=== PATIENT | female | born 1940 | race Caucasian/White ===

== ENCOUNTER 2022-11-22 11:09 | Outpatient (REF) | payer MEDICARE, SELFPAY ==
--- NOTE | ~2022-11-22 | XR_ITS ---
EXAMINATION: XR LUMBOSACRAL SPINE CLINICAL INFORMATION: Scoliosis COMPARISON: None available. TECHNIQUE: Two views of the lumbosacral spine. FINDINGS: There is a severe curvature of the lumbar sacral spine to the right. No fracture or dislocation. Multilevel degenerative disc. Lower lumbar spine facet arthritis. There may be sacralization of the right L5 transverse process. Right hip replacement. Arthritis at the left hip joint. Atherosclerotic disease. XR/XR lumbar spine 2-3V IMPRESSION: Severe scoliosis and degenerative changes
== END 2022-11-22 11:10 | disposition home or self-care (01) ==
LOC: HO.HOSX 11:09
PROVIDERS: PCP Family Medicine; Visit Provider Neurological Surgery
DX: M51.36 Other intervertebral disc degeneration, lumbar region (principal); M41.50 Other secondary scoliosis, site unspecified
CPT/HCPCS: 72100; 99202

== ENCOUNTER → 2022-12-13 15:03 | Outpatient (BNVA) | payer MEDICARE, SELFPAY | PROVIDERS: PCP Family Medicine; Visit Provider Neurological Surgery ==

== ENCOUNTER 2023-01-15 13:14 | Inpatient (IN) | payer MEDICARE, SELFPAY ==
[2023-01-08 09:47] VITALS: BMI 25.8
--- NOTE | 2023-01-08 14:44 | P.CONAN_ITS ---
Documented by User: Laverne Gallo NP 01/11/23 11:04 HPI - Anesthesia Eval Consult details Narrative: 82yo F for L2-3,L3-4 Oblique Lumbar Interbody Fusion Cardiac optimized PMFSH Active Problems Active Problems: All Active Problems (Updated 01/08/23 @ 09:46 by Brittany Henderson, RN) Scoliosis due to degenerative disease of spine in adult patient (Acute) Past Medical History Medical History (Updated 01/08/23 @ 09:46 by Brittany Henderson RN) Anxiety Atrophy of vagina Cystocele with small rectocele and uterine descent Dyspnea Hearing loss History of basal cell carcinoma History of endometrial biopsy History of Mohs micrographic surgery for skin cancer HTN (hypertension) Hyperlipidemia IBS (irritable bowel syndrome) MVP (mitral valve prolapse) Osteoarthritis PAC (premature atrial contraction) Palpitations Pessary maintenance RBBB Scoliosis of lumbosacral region due to degenerative disease of spine in adult Seasonal allergic rhinitis Spinal stenosis Surgical History Surgical History (Updated 01/15/23 @ 06:17 by Annmarie Swartz) H/O eye surgery History of carpal tunnel release History of total right hip replacement Hx of bilateral cataract extraction Hx of breast biopsy Hx of colonoscopy Status post Mohs surgery Social History Social History Are you a primary rn patient care to a significant other at home: No Do you presently have visiting nurse or other home services: No Patient Tobacco Use Status: Never used Tobacco Use of substances other than those prescribed or required for medical reasons: No Have you been hit, kicked, punched, or otherwise hurt by someone within the past year? If so, by whom?: No Are you DNR?: Yes Advance Directives Information Provided: Yes [place] [facility] [place] Advance Directives on File: No Recently lost weight without trying: No Eating poorly because of decreased appetite: No Nutrition Risks: Surgical patient >75years Poor oral hygiene: No Meds Allergies Allergy/AdvReac Type Severity Reaction Status Date / Time cefuroxime [From Ceftin] Allergy Intermediate Rash Verified 01/15/23 06:18 Penicillins Allergy Intermediate Rash Verified 01/15/23 06:18 Sulfa (Sulfonamide Allergy Intermediate Cough Verified 01/15/23 06:18 Antibiotics) baclofen AdvReac Severe suicidal Verified 01/15/23 06:18 thoughts gabapentin AdvReac Severe Hallucinati Verified 01/15/23 06:18 ons lactose AdvReac Intermediate Gastrointestinal Verified 01/15/23 06:18 Upset Home Medications Medication Instructions Recorded Confirmed Last Taken Type atenolol 25 mg tablet 25 mg PO QAM 11/22/22 01/15/23 01/15/23 04:30 History estradiol 0.01% (0.1 mg/gram) 0.5 g vaginal 2XW 11/22/22 01/15/23 01/11/23 History vaginal cream hydrocodone 5 mg-acetaminophen 300 1 tab PO Q6H 11/22/22 01/15/23 01/15/23 02:30 History mg tablet paroxetine HCl 10 mg tablet 10 mg PO BEDTIME 11/22/22 01/15/23 01/14/23 History sulindac 200 mg tablet 200 mg PO BID 11/22/22 01/15/23 01/11/23 History acetaminophen 500 mg tablet 1,000 mg PO BID 01/08/23 01/15/23 01/14/23 History calcium carbonate 600 mg calcium 600 mg PO BID 01/08/23 01/15/23 01/14/23 History (1,500 mg) tablet (Calcium) cholecalciferol (vitamin D3) 25 25 mcg PO DAILY 01/08/23 01/15/23 01/14/23 History mcg (1,000 unit) capsule (Vitamin D3) flaxseed oil 1,000 mg capsule 1,000 mg PO BID 01/08/23 01/15/23 01/11/23 History glucosamine sulfate 500 mg tablet 500 mg PO TID 01/08/23 01/15/23 01/11/23 History (Glucosamine) magnesium L-threonate 48 mg 48 mg PO DAILY 01/08/23 01/15/23 01/11/23 History magnesium (667 mg) capsule multivitamin 1 tab PO QAM 01/08/23 01/15/23 01/14/23 History pregabalin 100 mg capsule 100 mg PO BID 01/08/23 01/15/23 01/15/23 04:30 History pregabalin 25 mg capsule 25 mg PO BID 01/08/23 01/15/23 01/15/23 04:30 History Exam Exam Date and Time: January 08, 2023 1444 Height,Weight and Vital Signs: Height 5 ft 5 in Weight 70.307 kg Pertinent Lab Results Pertinent Lab Results: CBC and CMP 10/2022 from outside facility = WNL Narrative Narrative: EKG 12/2022 NSR @ 81 Incomplete RBBB (old) ECHO 2017 LV function nml. EF 65-70% Nml LV wall motion Mild diastolic dysfunction Trace aortic regurg Aortic sclerosis Assessment and Plan Assessment Anesthesia Assessment: Chart Reviewed Documented by User: Saroj Brewer MD 01/15/23 11:03 [facility] Past Medical History Medical History (Updated 01/08/23 @ 09:46 by Brittany Henderson RN) Anxiety Atrophy of vagina Cystocele with small rectocele and uterine descent Dyspnea Hearing loss History of basal cell carcinoma History of endometrial biopsy History of Mohs micrographic surgery for skin cancer HTN (hypertension) Hyperlipidemia IBS (irritable bowel syndrome) MVP (mitral valve prolapse) Osteoarthritis PAC (premature atrial contraction) Palpitations Pessary maintenance RBBB Scoliosis of lumbosacral region due to degenerative disease of spine in adult Seasonal allergic rhinitis Spinal stenosis Functional capacity: uses cane/walker Family History Family history of problems with anesthesia: No Surgical History Surgical History (Updated 01/15/23 @ 06:17 by Annmarie Swartz) H/O eye surgery History of carpal tunnel release History of total right hip replacement Hx of bilateral cataract extraction Hx of breast biopsy Hx of colonoscopy Status post Mohs surgery History of Problems with Anesthesia: No Social History Social History Are you a primary rn patient care to a significant other at home: No Do you presently have visiting nurse or other home services: No Patient Tobacco Use Status: Never used Tobacco Use of substances other than those prescribed or required for medical reasons: No Have you been hit, kicked, punched, or otherwise hurt by someone within the past year? If so, by whom?: No Are you DNR?: Yes Advance Directives Information Provided: Yes [place] [facility] [place] Advance Directives on File: No Recently lost weight without trying: No Eating poorly because of decreased appetite: No Nutrition Risks: Surgical patient >75years Poor oral hygiene: No Meds Allergies Allergy/AdvReac Type Severity Reaction Status Date / Time cefuroxime [From Ceftin] Allergy Intermediate Rash Verified 01/15/23 06:18 Penicillins Allergy Intermediate Rash Verified 01/15/23 06:18 Sulfa (Sulfonamide Allergy Intermediate Cough Verified 01/15/23 06:18 Antibiotics) baclofen AdvReac Severe suicidal Verified 01/15/23 06:18 thoughts gabapentin AdvReac Severe Hallucinati Verified 01/15/23 06:18 ons lactose AdvReac Intermediate Gastrointestinal Verified 01/15/23 06:18 Upset Home Medications Medication Instructions Recorded Confirmed Last Taken Type atenolol 25 mg tablet 25 mg PO QAM 11/22/22 01/15/23 01/15/23 04:30 History estradiol 0.01% (0.1 mg/gram) 0.5 g vaginal 2XW 11/22/22 01/15/23 01/11/23 History vaginal cream hydrocodone 5 mg-acetaminophen 300 1 tab PO Q6H 11/22/22 01/15/23 01/15/23 02:30 History mg tablet paroxetine HCl 10 mg tablet 10 mg PO BEDTIME 11/22/22 01/15/23 01/14/23 History sulindac 200 mg tablet 200 mg PO BID 11/22/22 01/15/23 01/11/23 History acetaminophen 500 mg tablet 1,000 mg PO BID 01/08/23 01/15/23 01/14/23 History calcium carbonate 600 mg calcium 600 mg PO BID 01/08/23 01/15/23 01/14/23 Histor y (1,500 mg) tablet (Calcium) cholecalciferol (vitamin D3) 25 25 mcg PO DAILY 01/08/23 01/15/23 01/14/23 History mcg (1,000 unit) capsule (Vitamin D3) flaxseed oil 1,000 mg capsule 1,000 mg PO BID 01/08/23 01/15/23 01/11/23 History glucosamine sulfate 500 mg tablet 500 mg PO TID 01/08/23 01/15/23 01/11/23 History (Glucosamine) magnesium L-threonate 48 mg 48 mg PO DAILY 01/08/23 01/15/23 01/11/23 History magnesium (667 mg) capsule multivitamin 1 tab PO QAM 01/08/23 01/15/23 01/14/23 History pregabalin 100 mg capsule 100 mg PO BID 01/08/23 01/15/23 01/15/23 04:30 History pregabalin 25 mg capsule 25 mg PO BID 01/08/23 01/15/23 01/15/23 04:30 History Exam Airway Mallampati Class: III TM Dist: >3cm Loose/Missing/Broken Teeth: Yes Assessment and Plan Assessment Anesthesia Assessment: Anesthesia Plan Discussed Final Anesthetic Review Family History of Problems with Anesthesia: No History of Problems with Anesthesia: No NPO: Yes ASA Class: III Final Preanesthetic Review: Meds/Allgs Chart Reviewed, Consent Obtained/Reviewed and Anes Risks/Benef Reviewed Patient Risk: Intermediate Procedure Risk: Intermediate Anesthetic Plan Anesthetic Plan: GA Disposition: Standard PACU
--- NOTE | 2023-01-12 17:36 | PHA.MEDREC ---
Pharmacy Consult ? Medication Reconciliation Pharmacy has reviewed the medication reconciliation.
[2023-01-15] VITALS (12 sets, daily range): BP systolic 105–137; BP diastolic 55–82; PULSE 65–95; RESP 14–20; TEMP 36.2–36.8; O2SAT 91–100; BMI 25.8
--- NOTE | ~2023-01-15 | FL_ITS ---
EXAMINATION: XR FLUOROSCOPY WITH IMAGES CLINICAL INFORMATION: L2-L3 and L3-L4 oblique lumbar interbody fusion. COMPARISON: Previous x-ray November 2022. TECHNIQUE: Fluoroscopy Supervised By: Dr. Jimmy Chapa. Fluoroscopy Time: 3 minutes. Cumulative Dose: 178 mGy. DAP: 1.71 Gy-cm2. Images: 7. FINDINGS: Initial images demonstrate interbody fusion hardware at L2-L3 and L3-L4. Later images demonstrate posterior fusion hardware with rods and transpedicular screws on the left at L3 and L4 and on the right at L2, L3 and L4. FL/FL guidance in OR IMPRESSION: Fluoroscopy guidance for lumbar spine fusion.
[2023-01-15] MEDS: Lactated Ringers 1,000 ML 100 ML IVCONT (06:49)
[2023-01-15] MEDS: methocarbamoL 750 MG TABLET PO (06:56)
--- NOTE | 2023-01-15 07:00 | MHC.SHP ---
Pre-Procedural Eval Section A Date of Service: 01/15/23 The patient is an INPATIENT: No The History & Physical has been completed within 30 days and I have reviewed it.: No Section B Chief Complaint: lumbar fusion surgery Details of Present Illness: see above Relevant Family History (Specify if Yes): No Relevant Social History: None Present Medications: see Short Stay Collaborative assessment Medical History: No relevant PMH History of Previous Operations: No relevant previous surgery Allergies: Allergies Allergy/AdvReac Type Severity Reaction Status Date / Time cefuroxime [From Ceftin] Allergy Intermediate Rash Verified 01/15/23 06:18 Penicillins Allergy Intermediate Rash Verified 01/15/23 06:18 Sulfa (Sulfonamide Allergy Intermediate Cough Verified 01/15/23 06:18 Antibiotics) baclofen AdvReac Severe suicidal Verified 01/15/23 06:18 thoughts gabapentin AdvReac Severe Hallucinati Verified 01/15/23 06:18 ons lactose AdvReac Intermediate Gastrointestinal Verified 01/15/23 06:18 Upset Review of Systems Sugical H&P ROS: Negative: Constitution, Cardiovascular, Respiratory, Neurological, Psychiatric, Hem-Onc, Allergic/Immunologic, Gastrointestinal, Genitourinary, Musculoskeletal, Integumentary, Endocrine and Eyes/Ears/Nose/Throat Exam Surgical H&P Exam: Not Evaluated: HEENT, Not Evaluated: Heart, Not Evaluated: Lungs, Not Evaluated: Extremities, Not Evaluated: Abdomen, Not Evaluated: Skin and Not Evaluated: Neurological Plan Diagnosis/Plan: Unchanged I have reviewed the history and physical and performed a pertinent physical examination on my patient. No changes have occurred unless specified. L2-3, L3-4 Oblique lumbar interbody fusion Time Spent With Patient Time: Total time managing care of this patient today __10__ minutes.
[2023-01-15] MEDS: vancomycin HCL 1,000 MG in 0.9 % Sodium Chloride 250 ML 270 MG IV ×2 (07:07→20:44)
--- NOTE | 2023-01-15 07:17 | PC.NURSE ---
Preop Vancomycin dose of 1000mg IV verified by Noemi in pharmacy.
--- NOTE | 2023-01-15 12:10 | W.PM.OPN ---
Operative Note Operative Note Date of Service: 01/15/23 Narrative: Preop Diagnosis: 1.) Lumbar degenerative scoliosis Procedure: L2-3, L3-4 discectomy, arthrodesis and implantation cage through an anterolateral, retroperitoneal approach; posterior instrumented fusion L2-L4; allograft Consent Informed Consent was obtained for this operation. I have explained the nature, purpose and benefits of the operation. I have discussed the risks and benefit of the operation including possible complications or adverse events with patient/family. Alternative(s) were discussed with the patient with their relative benefits and risks as well as the consequences of not accepting the operation were included in obtaining consent. Surgeon: STEVEN FERRER MD, PHD Procedure Assisted By: Henrique Oliva Description of Procedure this 82-year-old female suffered from back pain and leg pain. Imaging reveals a lumbar degenerative scoliosis. The patient was offered an oblique lumbar interbody fusion L2-3 and L3-4. The procedure complications were explained. The patient was consented. The patient was brought to the operating room and endotracheally intubated. The patient was turned in a lateral position with the left side up. Prep and drape was done followed by timeout. A small incision was made in the left lower abdominal quadrant. The muscle fascia was opened after which the 3 muscle layer was split to enter the retroperitoneal space. Dilators were docked in the anterior one third of the L3-4 disc space followed by a retractor. The retractor was opened. The L3-4 disc space was exposed. An annulotomy was done after which an elevator Torres was used to release the disc material from its endplates and to perforate the contralateral side. A partial discectomy was done. An 8 mm height trial implant was inserted. The discectomy was completed. The endplates were prepared. An 8 x 45 mm with 0 degree lordosis 4 web cage filled with allograft was inserted into the disc space under fluoroscopic guidance. Then the L2-3 disc space was addressed. Sequential dilators were placed. Retractor was inserted over it and docked in the anterior 1/3 of the L2-3 disc space. An annulotomy was done. The elevator Torres was used to release the disc material at to perforate the contralateral annulus. and initial diskectomy was done. An 8 mm trial was inserted. The diskectomy was completed followed by preparation of the endplates. Again an 8 mm x 45 mm cagewWith a 0 degree lordosis cwas inserted into the disc space.The retractor was removed. Hemostasis was done. The incision was closed in 2 layers. Steri-Strips used to approximate incision. An OpSite with Tegaderm was used to cover the incision. final x-ray showed a good correction of the scoliotic curvature.This marked first part of the procedure. The patient was turned prone on the Doug spine table. 2C arms were installed for fluoroscopy. Prep and drape was done followed by a second timeout.A paramedian incisions were made lateral from the right L2 pedicle. The muscle fascia was opened after which the muscle layer was split bluntly to expose the posterolateral gutter. The following steps were taken. A pediguard tap was used to create a transpedicular trajectory into the vertebral body. A K wire was placed. A specially designed instrument was advanced over the K wire to decorticate the posterolateral gutter in preparation for the posterolateral fusion. A pedicle screw was advanced over the K wire and the K wire was removed. The steps were done for the bilateral L2, L3 and L4 pedicles. Poor bone quality was and countered. a 5.5 x 40 mm screw was inserted in the bilateral L2 pedicles, a 6.5 x 40 mm screw was inserted in the bilateral L3 and L4 pedicles. the L2 to the L4 pedicle the screws were connected with a 70 mm hannah on the right side. A similar procedure was tried on the left side but unfortunately due to poor bone quality, and the left L2 pedicle screw came out. No effort was made to insert an and a screw based on the bone quality As we also saw that the right L3 pedicle pulled out in during insertion and locking down of the rods. The remaining L3 and L4 pedicles from the left side were connected with a 50 mm hannah and locked down with locking caps.The extension towers were removed. The posterolateral gutter was filled with allograft to complete the posterolateral L2-L4 fusion Hemostasis was done and the incision was closed in 2 layers. Steri-Strips were used to approximate the incision. An OpSite were taken and was used to cover the incision. All sponge and needle counts were correct. Patient was extubated and transferred in stable is to recovery room. Anesthesia: General Estimated Blood Loss (ml): 100 Duration of Surgery: 4 hours Postoperative Plan: Admit to [facility] for observation. Complications: None
[2023-01-15] MEDS: Ketorolac Tromethamine 15 MG/ML VIAL IVPUSH ×3 (13:02→23:31)
[2023-01-15] MEDS: fentaNYL citrate/PF 100 MCG/2 ML VIAL 25 MCG IVPUSH ×2 (13:02→13:10)
[2023-01-15] MEDS: oxyCODONE HCl Immed Release 5 MG TABLET PO (13:03)
[2023-01-15] MEDS: 0.9 % Sodium Chloride 1,000 ML 75 ML IVCONT (14:49)
--- NOTE | 2023-01-15 16:35 | HO.NEURO.PN ---
Neurosurgery Operative Note Date of Service: 01/15/23 Narrative: Postop Check Patient reports back pain, some tingling in her left leg which is pre-existing for many years. She did have to be straight cath once for 500 cc. She has been taking liquids but has not started eating yet. Physical exam: The patient is awake alert oriented, cooperative with my exam, she has full strength of bilateral lower extremities, back dressing has been reinforced but there was some oozing on the right side. No signs of hematoma Impression: Postop check, status postop day 0. L2-4 minimally invasive OLIF, clinically doing well, has back pain otherwise doing okay. She did have to be straight cath once. She has been up to the bathroom. An order was placed for her to have an LSO brace when she is out of bed, I suspect that will write tomorrow. She did report some scratching in her left eye, I evaluated at there is no redness, I will order some lubricating drops. Likely patient will go home tomorrow. Patient seen at bedside with Dr. Chapa.
[2023-01-15] MEDS: Acetaminophen 1,000 MG/100 ML PIGGYBACK 400 MG IV ×2 (17:49→23:31)
[2023-01-15] MEDS: Pregabalin 100 MG CAPSULE PO (20:32)
[2023-01-15] MEDS: Docusate Sodium 100 MG CAPSULE PO (20:32)
[2023-01-15] MEDS: Pregabalin 25 MG CAPSULE PO (20:32)
[2023-01-15] MEDS: PARoxetine HCL 10 MG TABLET PO (20:32)
[2023-01-15] MEDS: HYDROmorphone HCl 1 MG/ML SYRINGE IVPUSH (22:27)
[2023-01-16] MEDS: 0.9 % Sodium Chloride 1,000 ML 75 ML IVCONT (03:24)
[2023-01-16 03:25] VITALS: BP 100/58; PULSE 89; RESP 18; TEMP 36.2; O2SAT 94
[2023-01-16] MEDS: Ketorolac Tromethamine 15 MG/ML VIAL IVPUSH ×3 (05:36→18:38)
[2023-01-16] MEDS: Acetaminophen 1,000 MG/100 ML PIGGYBACK 400 MG IV ×3 (05:37→17:38)
[2023-01-16 07:47] VITALS: BP 99/54; PULSE 83; RESP 18; TEMP 37.2; O2SAT 92
[2023-01-16] MEDS: Magnesium Oxide 400 MG TABLET PO (09:21)
[2023-01-16] MEDS: Multivitamin TABLET 1 TAB PO (09:21)
[2023-01-16] MEDS: Docusate Sodium 100 MG CAPSULE PO ×2 (09:21→20:11)
[2023-01-16] MEDS: Pregabalin 100 MG CAPSULE PO ×2 (09:22→20:11)
[2023-01-16] MEDS: Cholecalciferol (Vitamin D3) 25 MCG TABLET PO (09:22)
[2023-01-16] MEDS: Pregabalin 25 MG CAPSULE PO ×2 (09:22→20:10)
--- NOTE | 2023-01-16 12:44 | MHC.CM.PN ---
PATIENT LIVES IN AN [place] APT CONNECTED TO HER DAUGHTER/HCP HOME HCP ON FILE AND VERIFIED. SHE IS HESITANT ABOUT RETURNING HOME TODAY AND IS AWARE OF HER MEDICARE RIGHT TO APPEAL SHE HAS A CANE AND WALKER IN THE HOME NORMALLY INDEPENDENT AND ACTIVE. ALTHOUGH [facility] RECOMMENDS OUTPATIENT REHAB SERVICES, SHE IS HOPING THAT [facility] (IN [place] NEAR WHERE SHE LIVES) CAN OFFER IN-HOME SERVICES REFERRAL PLACED TO INQUIRE. IMM 01/16 IN CHART
--- NOTE | 2023-01-16 12:53 | HO.NEURO.PN ---
Neurosurgery Operative Note Date of Service: 01/16/23 Narrative: Postop day 1. L2-3, L3-4 oblique lumbar interbody fusion Patient clinically complaining of some mild left iliopsoas weakness and her baseline numbness of her left lateral thigh. Her appetite is poor but she has been able to eat a little bit. She is drinking okay. She did have to be straight cathed 3 times overnight but was able to void earlier today for 200 cc. She is working with PT, her brace is not yet arrived. Afebrile, vital signs stable Physical exam: Patient is awake alert oriented, she has full strength of bilateral lower extremities with the exception of some mild left iliopsoas weakness which is likely from the trans psoas approach. Abdomen soft nondistended nontender, left lower quadrant incision clean and dry. No rebound tenderness or guarding. Posterior back dressings have been changed and reinforced in the look fine no signs of hematoma. Impression: Postop day 1. L2-3, L3-4 oblique lumbar interbody fusion, patient clinically doing well with the exception of some mild left leg weakness which is likely due to the approach across the psoas muscle. She is otherwise stable, she will work with PT. She was able to eventually void. The plan will be to discharge her home tomorrow as the patient is nervous about going home today I would like an extra day. Patient seen at bedside with Dr. Chapa.
--- NOTE | 2023-01-16 12:55 | P.DS_ITS ---
DS: Providers Provider Date of Service: 01/15/23 <JENISE Dorsey - Last Filed: 01/16/23 13:19> Date of admission: 01/15/23 13:14 <JENISE Dorsey - Last Filed: 01/16/23 13:19> Date of discharge: 01/17/23 <JENISE Dorsey - Last Filed: 01/16/23 13:19> Primary care physician: ANABELA MORTON MD <JENISE Dorsey - Last Filed: 01/16/23 13:19> Admitting clinician: Jimmy Chapa <JENISE Dorsey - Last Filed: 01/16/23 13:19> Consults: 01/15/23 13:55 Consult to Orthotics Routine Consulting Provider: Henrique Wan Reason for consultation: Lane Gao will call Orthotics and prosthetics to get PO order <JENISE Dorsey - Last Filed: 01/16/23 13:19> DS: Diagnosis Discharge Diagnosis (1) Scoliosis due to degenerative disease of spine in adult patient: Status: Acute <JENISE Dorsey - Last Filed: 01/16/23 13:19> DS: Summary Hospital Course Hospital Course: Underwent scoliosis correction through an L3-4 and L4-5 OLIOF on 01/15/2023. Patient tolerated surgery well. She is ambulating with a walker. Incisions are dry. <JENISE Dorsey - Last Filed: 01/16/23 13:19> Status at Discharge Functional status at discharge: uses cane/walker <Jimmy Chapa MD, PhD - Last Filed: 01/17/23 14:09> Time Spent with Patient Time attestation: Total time managing care of this patient today ____ minutes. <JENISE Dorsey - Last Filed: 01/16/23 13:19> Discharge coordination time: Less than 30 minutes <Jimmy Chapa MD, PhD - Last Filed: 01/17/23 14:09> Specific discharge activities: Needs lumbar brace when out of bed <Jimmy Chapa MD, PhD - Last Filed: 01/17/23 14:09> Quality: Safe Use of Opioids Does Pt have an Active Cancer Diagnosis on the Problem List?: No <Jimmy Chapa MD, PhD - Last Filed: 01/17/23 14:09> Quality: Stroke Does the patient have a stroke diagnosis?: No <Jimmy Chapa MD, PhD - Last Filed: 01/17/23 14:09> Physical Exam Vital Signs: Vital Signs: Last Vital Signs Temp 98.9 F 01/16/23 07:47 Pulse 83 01/16/23 07:47 Resp 18 01/16/23 07:47 BP 99/54 L 01/16/23 07:47 Pulse Ox 92 01/16/23 07:47 O2 Del Method Room Air 01/16/23 07:47 O2 Flow Rate 2 01/15/23 13:33 BMI result Body Mass Index 25.8 <JENISE Dorsey - Last Filed: 01/16/23 13:19> Discharge Plan Discharge Anticipated Discharge Date/Time: 01/17/23 12:44 <JENISE Dorsey - Last Filed: 01/16/23 13:19> Patient Disposition: Home Health Service <JENISE Dorsey - Last Filed: 01/16/23 13:19> Discharge Diagnosis: lumbar scoliosis <JENISE Dorsey - Last Filed: 01/16/23 13:19> lumbar scoliosis <Jimmy Chapa MD, PhD - Last Filed: 01/17/23 14:09> Referrals: Debbie PLASCENCIA [Outside] - 1 Week ANABELA MORTON [Primary Care Provider] - 1 Week <JENISE Dorsey - Last Filed: 01/16/23 13:19> Discharge Medications: New hydromorphone [Dilaudid] 2 mg tablet 2 mg PO Q6H Qty: 30 0RF Rx Instructions: Partial Fill upon patient request. Continued multivitamin Tablet 1 tab PO QAM glucosamine sulfate [Glucosamine] 500 mg Tablet 500 mg PO TID Rx Instructions: administer with meals acetaminophen 500 mg Tablet 1,000 mg PO BID calcium carbonate [Calcium 600] 600 mg calcium (1,500 mg) Tablet 600 mg PO BID flaxseed oil 1,000 mg Capsule 1,000 mg PO BID Rx Instructions: administer with meals cholecalciferol (vitamin D3) [Vitamin D3] 25 mcg (1,000 unit) Capsule 25 mcg PO DAILY pregabalin 25 mg capsule 25 mg PO BID pregabalin 100 mg capsule 100 mg PO BID magnesium L-threonate 48 mg magnesium (667 mg) Capsule 48 mg PO DAILY paroxetine HCl 10 mg tablet 10 mg PO BEDTIME sulindac 200 mg tablet 200 mg PO BID atenolol 25 mg tablet 25 mg PO QAM estradiol 0.01 % (0.1 mg/gram) cream 0.5 g vaginal 2XW Discontinued hydrocodone-acetaminophen 5-300 mg tablet 1 tab PO Q6H <JENISE Dorsey - Last Filed: 01/16/23 13:19> Discharge Orders: Discharge Order (Routine); Ordered 01/17/23 Ordered By: Jimmy Chapa <JENISE Dosrey - Last Filed: 01/16/23 13:19> Diet: Advance to usual diet <JENISE Dorsey - Last Filed: 01/16/23 13:19> Advance to usual diet <Jimmy Chapa MD, PhD - Last Filed: 01/17/23 14:09> Activity on Discharge: Use brace when out of bed <JENISE Dorsey - Last Filed: 01/16/23 13:19> Use brace when out of bed <Jimmy Chapa MD, PhD - Last Filed: 01/17/23 14:09> Stand Alone Forms: Patient Portal Discharge page <JENISE Dorsey - Last Filed: 01/16/23 13:19> Activity Restrictions/Additional Instructions: After your spinal surgery we ask you to observe the following restrictions/guidelines: Activity: It is normal to feel some discomfort as you increase your activity, but that will improve with time. We ask you avoid heavy lifting or acitivities that cause pain. As a general rule, 8lbs is a safe limit for lifting right after surgery. Walk as much as you feel comfortable but not to exhaustion. You will feel extra tired the first few days after surgery. Stay well hydrated. It is OK to walk up and down stairs You may return to driving when you are off narcotics (such as vicodin, oxycodone, dilaudid, etc), and you are back to normal functional capacity. If you have any concerns please check with office before driving. Return to work is specific to each patient and each surgery, so please speak with your doctor/PA at first follow up. Please bring paperwork such as FMLA at that time if you need it filled out. Medications: We will give you a short supply of narcotics after surgery (usually one weeks worth). If you need more please call the office but do not use more than prescribed. You will need to give our office 48 hours notice if you need narcotics refilled and we do not fill narcotics on weekends or evenings. If you are on a narcotic, it is a good idea to take a stool softener such as colace or senna to avoid constipation If you take blood thinner such as aspirin, Plavix, Coumadin, Effient, Eliquis etc for conditions such as Afib, DVT, Pulmonary embolus, coronary disease, sten ts etc please speak with your surgeon about specific details as to when you can resume these medications. You can resume NSAIDs on post op day 1 (eg: Motrin, Naproxen, etc). Follow up: Please call the office, , after surgery to arrange a 3 week follow up for wound check. Wound Care: You may remove your dressing on the first day after surgery. You may leave open to air. Please do not remove the steri strips underneath. they will fall off on their own in one week. IT IS NORMAL FOR THE WOUND TO OOZE OR BE BLOODY FOR A FEW DAYS AFTER SURGERY. IF THIS HAPPENS JUST PLACE NEW DRESSING OVER IT TO AVOID STAINING CLOTHES. You may shower on post op day # 1 We ask that you do not let the water soak the wound. If it does get wet, just towel dry lightly. Please do not scrub your incision or place any type of chemical/ointment on the wound. No tub baths, pools or jacuzzis for one month. If you have any leaking or redness from your wound, or fevers, please call office <JENISE Dorsey - Last Filed: 01/16/23 13:19> Care Plan Goals: discharge home <JENISE Dorsey - Last Filed: 01/16/23 13:19> Health Concerns: none <JENISE Dorsey - Last Filed: 01/16/23 13:19> Plan of Treatment: discharge home <JENISE Dorsey - Last Filed: 01/16/23 13:19> Assessment: stable <JENISE Dorsey - Last Filed: 01/16/23 13:19>
--- NOTE | 2023-01-16 13:57 | HO.POSTANES ---
Post Anesthesia Evaluation Post Anesthesia Evaluation Date of Service: 01/16/23 Vital Signs: Vital Signs Temp Pulse Resp BP Pulse Ox O2 Del Method 01/16/23 07:47 98.9 F 83 18 99/54 L 92 Room Air 01/16/23 03:25 97.2 F 89 18 100/58 L 94 Room Air Anesthesia: General Endotracheal-GETA Mental Status: Awake Pain Control: Satisfactory Nausea/Vomiting: None Hydration: Adequate Anesthesia-Related Issues: No Anes. Related Issues
--- NOTE | 2023-01-16 15:12 | MHC.CM.PN ---
[facility] DAUGHTERS (IN ROOM) AND PATIENT AWARE. [facility] HAS NOT ARRIVED YET AND PLAN IS FOR TOMORROW. PATIENT HAS A FRIEND IN [place] WHO MAY BE ABLE TO DRIVE PATIENT HOME. CASE MANAGEMENT FOLLOWING
[2023-01-16 15:19] VITALS: BP 109/53; PULSE 89; RESP 16; TEMP 36; O2SAT 93
--- NOTE | 2023-01-16 18:30 | PC.NURSE ---
patient voided without difficulty at 1630,OVERHEAD CRANE OPERATOR reported patient refused to use hat on the toilet to measure the urine,patient decided to sit up in chair after using toilet ,so we were unable to bladder scan after,will monitor
[2023-01-16 19:46] VITALS: BP 101/52; PULSE 98; RESP 18; TEMP 37; O2SAT 93
[2023-01-16] MEDS: PARoxetine HCL 10 MG TABLET PO (20:11)
[2023-01-17] MEDS: Acetaminophen 1,000 MG/100 ML PIGGYBACK 400 MG IV ×3 (00:14→11:57)
[2023-01-17] MEDS: Ketorolac Tromethamine 15 MG/ML VIAL IVPUSH ×3 (00:32→12:27)
[2023-01-17 03:41] VITALS: BP 120/72; PULSE 83; RESP 18; TEMP 36.2; O2SAT 95
[2023-01-17 07:12] VITALS: BP 128/79; PULSE 80; RESP 18; TEMP 36.8; O2SAT 93
[2023-01-17] MEDS: Pregabalin 25 MG CAPSULE PO (09:21)
[2023-01-17] MEDS: Pregabalin 100 MG CAPSULE PO (09:21)
[2023-01-17] MEDS: atenoloL 25 MG TABLET PO (09:21)
[2023-01-17] MEDS: Cholecalciferol (Vitamin D3) 25 MCG TABLET PO (09:21)
[2023-01-17] MEDS: Multivitamin TABLET 1 TAB PO (09:21)
[2023-01-17] MEDS: Magnesium Oxide 400 MG TABLET PO (09:21)
--- NOTE | 2023-01-17 13:48 | MHC.CM.PN ---
PATIENT IS DC HOME WITH [facility] FRIEND IS ON WAY IN TO TRANSPORT IMM 01/16 PREVIOUSLY COMPLETED
--- NOTE | 2023-01-17 14:09 | W.MHC.F2F ---
Service Date Service Date: 01/17/23 Encounter Date of encounter: 01/17/23 Reasons for Services Signs and symptoms assessed: Status post lumbar fusion for correction of scoliosis Reason for physical therapy: home safety and mobility, therapeutic exercises, restore joint function, gait/transfer training, assess need for DME, ADL training, energy conservation and other Homebound: Leaving the home is medically contraindicated at this time without the asist of a device and/or another person due th the listed conditions above and below. Reason homebound: unsteady gait / fall risk and pain with ambulation Certification: Based on the above findings, I certify that this patient is confined to the home and needs intermittent correction care, physical therapy and/or speech therapy, or continues to need occupational therapy. The patient is under my care, and I have initiated the establishment of the plan of care. The patient will be followed by a physician who will periodically review the plan of care. Time Spent With Patient Time: Total time managing care of this patient today __15__ minutes.
== END 2023-01-17 14:20 | disposition home health service (06) | DRG 458 ==
LOC: HO.SSSA 13:22 → HO.S3 13:23
PROVIDERS: Neurological Surgery; Admitting Provider Physician Assistant; PCP Family Medicine; Visit Provider Physician Assistant
PROC: 0SG00A0 Fusion of Lumbar Vertebral Joint with Interbody Fusion Device, Anterior Approach, Anterior Column, Open Approach (ICD-10-PCS; principal; 2023-01-15 07:30)
DX: M51.36 Other intervertebral disc degeneration, lumbar region (principal); M41.56 Other secondary scoliosis, lumbar region; Z88.0 Allergy status to penicillin; Z88.2 Allergy status to sulfonamides; Z79.899 Other long term (current) drug therapy
CPT/HCPCS: 97116; 97162; 97530; C1713; J0131; J1100; J1170; J1885; J2370; J2405; J3010; J3370; L8699

== ENCOUNTER 2023-02-28 13:48 | Outpatient (AMB) | payer MEDICARE, SELFPAY ==
--- NOTE | 2023-02-28 17:23 | HO.SPINEOV ---
Intake Intake Visit Reasons: 1st post op/needs xrays Allergies cefuroxime [From Ceftin] Allergy (Intermediate, Verified 01/15/23 06:18) Rash Penicillins Allergy (Intermediate, Verified 01/15/23 06:18) Rash Sulfa (Sulfonamide Antibiotics) Allergy (Intermediate, Verified 01/15/23 06:18) Cough baclofen Adverse Reaction (Severe, Verified 01/15/23 06:18) suicidal thoughts gabapentin Adverse Reaction (Severe, Verified 01/15/23 06:18) Hallucinations lactose Adverse Reaction (Intermediate, Verified 01/15/23 06:18) Gastrointestinal Upset Assessment & Plan Assessment & Plan (1) Scoliosis due to degenerative 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 She underwent a partial correction of her lumbar degenerative scoliosis through an oblique lumbar interbody fusion L3-4 and L4-5 to indirectly decompress the spinal canal and exiting nerve root at these levels. Postoperatively, she complained of more diet weakness and pain radiating to her knee. She still using Dilaudid 2 mg 4 times a day. The strength is improving. Home physical therapy will be discontinued. I will refer for outpatient therapy. On exam, there is mild weakness of the left iliopsoas. An x-ray today shows good position of the interbody devices and instrumentation. In summary, the patient is recovering from her minimally invasive partial correction of her scoliosis. Her left leg weakness is improving. I wrote a prescription for outpatient therapy. I will also order a new script for Dilaudid. I would like to follow up in 6 weeks with an x-ray. Jimmy Chapa MD, PhD Spine Fellowship Trained Neurosurgeon Director, [facility] Orders: Orders XR lumbar spine 4V min Today M41.50 - Other secondary scoliosis, site unspecified PT Evaluation and Treatment Today M41.50 - Other secondary scoliosis, site unspecified, M43.26 - Fusion of spine, lumbar region XR lumbar spine 4V min 6 Weeks M41.50 - Other secondary scoliosis, site unspecified Medications: New hydromorphone (Dilaudid) Partial Fill upon patient request. 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
== END 2023-02-28 15:50 | disposition home or self-care (01) ==
PROVIDERS: PCP Family Medicine; Visit Provider Neurological Surgery
DX: M41.50 Other secondary scoliosis, site unspecified (principal)
CPT/HCPCS: 99024

== ENCOUNTER 2023-02-28 14:16 | Outpatient (REF) | payer MEDICARE, SELFPAY ==
--- NOTE | ~2023-02-28 | XR_ITS ---
EXAMINATION: XR LUMBOSACRAL SPINE WITH OBLIQUES CLINICAL INFORMATION: Status post lumbar fusion. COMPARISON: Lumbar spine 11/22/2022. TECHNIQUE: 4 views of the lumbar spine. Lateral view of the lumbosacral junction. FINDINGS: There is abnormal segmentation of lumbar vertebrae with probable sacralization of L5 vertebra. There is mild levoscoliosis of upper/mid lumbar spine. There are disc prostheses at the L3-L4 and L4-L5 disc levels. Right pedicular screws at L3, L4-L5 vertebra and left pedicular screws at L4-L5 vertebra noted for posterior stabilization. Loss of disc height is seen at virtually every disc level. No acute fracture, lytic or sclerotic process seen. 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 XR/XR lumbar spine 4V min IMPRESSION: L3-L4 and L4-L5 disc prosthesis stabilized with posterior hardware as described above. No visible acute fracture or dislocation seen.
== END 2023-02-28 14:17 | disposition home or self-care (01) ==
LOC: HO.HOSX 14:16
PROVIDERS: Visit Provider Neurological Surgery
DX: M41.9 Scoliosis, unspecified (principal)
CPT/HCPCS: 72110

== ENCOUNTER 2023-04-10 14:15 | Outpatient (AMB) | payer MEDICARE, SELFPAY ==
--- NOTE | 2023-04-10 14:51 | HO.SPINEOV ---
Intake Intake Visit Reasons: 6 week f/u with Xrays Intake Note: Ms. Turner is here today for her 6wk f/u w/x-rays. 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 she is status post partial correction of her lumbar degenerative scoliosis. Postoperative, she is suffering from an improving weakness of her left leg that involves the L4 nerve root. She is currently will walking with a walker and can to 2500 steps a day. She was scheduled for outpatient physical therapy, which had to be postponed due to a episode of rectal bleeding for which she was admitted to the hospital. She is no longer using Dilaudid. Today's x-ray shows a stable surgical construct. Overall, she is slowly progressing.I would like to follow-up in 3 months with a standing x-ray. Jimmy Chapa MD, PhD Spine Fellowship Trained Neurosurgeon Director, [facility] Orders: Orders XR lumbar spine 4V min 04/10/23 M43.26 - Fusion of spine, lumbar region Coding Level of Care Code Global (40395) Diagnoses Scoliosis due to degenerative disease of spine in adult patient M41.50 Fusion of lumbar spine M43.26
== END 2023-04-10 15:18 | disposition home or self-care (01) ==
PROVIDERS: PCP Family Medicine; Visit Provider Neurological Surgery
DX: M41.50 Other secondary scoliosis, site unspecified (principal); M43.26 Fusion of spine, lumbar region
CPT/HCPCS: 99024

== ENCOUNTER 2023-04-10 14:15 | Outpatient (REF) | payer MEDICARE, SELFPAY ==
--- NOTE | ~2023-04-10 | XR_ITS ---
EXAMINATION: XR LUMBOSACRAL SPINE WITH OBLIQUES CLINICAL INFORMATION: Post lumbar fusion COMPARISON: Spine radiographs 02/28/2023 TECHNIQUE: AP, lateral, flexion and extension views of the lumbar spine FINDINGS: Levoscoliotic curvature of the lumbar spine is again noted with sacralization of the L5 vertebral body. Disc spacing devices are again seen at L3-L4 and L4-L5, right-sided posterior hannah and pedicle screws at L3, L4, L5 and left-sided hannah and pedicle screws L4 and L5. There is stable appearance of hardware and alignment is unchanged. Grade 1 anterolisthesis of L3 on L4 and L4 on L5 is unchanged and there is no evidence of dynamic instability on flexion or extension views. Degenerative changes of the lumbar vertebral bodies and intervertebral discs are unchanged from prior. There is evidence of calcification of the aorta and the splenic artery. There is a partially visualized right hip prosthesis. XR/XR lumbar spine 4V min IMPRESSION: Stable surgical changes relating to L3-L5 discectomy and fusion.
== END 2023-04-10 14:16 | disposition home or self-care (01) ==
LOC: HO.HOSX 14:15
PROVIDERS: PCP Family Medicine; Visit Provider Neurological Surgery
DX: M43.26 Fusion of spine, lumbar region (principal); M41.50 Other secondary scoliosis, site unspecified
CPT/HCPCS: 72110

== ENCOUNTER 2023-04-11 07:15 | Outpatient (REF) | payer MEDICARE, SELFPAY | END 2023-04-11 07:16 | disposition home or self-care (01) | LOC: HO.HOSX 07:15 | PROVIDERS: Visit Provider Neurological Surgery | DX: Z13.89 Encounter for screening for other disorder (principal) ==

== ENCOUNTER 2023-07-10 12:50 | Outpatient (REF) | payer MEDICARE, SELFPAY ==
--- NOTE | ~2023-07-10 | XR_ITS ---
EXAMINATION: XR LUMBOSACRAL SPINE WITH OBLIQUES CLINICAL INFORMATION: Fusion of spine COMPARISON: Spine radiograph from 04/10/2023 TECHNIQUE: 4 views of the lumbar spine FINDINGS: Status post fusion of right L3-L5 and left L4-L5 with disc spacers at L3-L4 and L4-L5. Prominent levocurvature of the mid lumbar spine. Spinal hardware is grossly intact. Multilevel degenerative changes. Grade 1 anterolisthesis of L3 on L4 and L4 on L5. Vertebral body heights and disc spaces are otherwise maintained. Posterior elements are intact. Paraspinal soft tissues are unremarkable. Atherosclerotic calculations of the abdominal aorta. Right hip arthroplasty partially visualized, grossly intact. XR/XR lumbar spine 4V min IMPRESSION: 1. Status post fusion of right L3-L5 and left L4-L5 with disc spacers at L3-L4 and L4-L5. Spinal hardware is grossly intact. 2. Prominent levocurvature of the mid lumbar spine. 3. Multilevel degenerative changes. 4. Grade 1 anterolisthesis of L3 on L4 and L4 on L5.
== END 2023-07-10 12:51 | disposition home or self-care (01) ==
LOC: HO.HOSX 12:50
PROVIDERS: Visit Provider Physician Assistant
DX: M43.26 Fusion of spine, lumbar region (principal); M41.50 Other secondary scoliosis, site unspecified; M54.17 Radiculopathy, lumbosacral region
CPT/HCPCS: 72110; 99212

== ENCOUNTER 2023-07-10 12:50 | Outpatient (AMB) | payer MEDICARE, SELFPAY ==
--- NOTE | 2023-07-10 13:22 | A.SPINEOV_ITS ---
Intake Intake Visit Reasons: 3 month f/up with xrays Intake Note: Ms. Turner is here today for her 3mo f/u. Speech And Language Assistant Required: No Allergies cefuroxime [From Ceftin] Allergy (Intermediate, Verified 01/15/23 06:18) Rash Penicillins Allergy (Intermediate, Verified 01/15/23 06:18) Rash Sulfa (Sulfonamide Antibiotics) Allergy (Intermediate, Verified 01/15/23 06:18) Cough baclofen Adverse Reaction (Severe, Verified 01/15/23 06:18) suicidal thoughts gabapentin Adverse Reaction (Severe, Verified 01/15/23 06:18) Hallucinations lactose Adverse Reaction (Intermediate, Verified 01/15/23 06:18) Gastrointestinal Upset Assessment & Plan Assessment & Plan (1) Fusion of lumbar spine: Code(s): M43.26 - Fusion of spine, lumbar region (2) Scoliosis due to degenerative disease of 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 She underwent a partial minimally invasive scoliosis correction. Postoperatively she was suffering from a left L4 radiculopathy with weakness and numbness. The weakness has greatly improved. The main problem is intermittent severe pains around her left knee. She is been evaluated by orthopedic surgeon and received injections without results. On exam, the left patellar reflex is absent. In summary, I think most of her pain complaints are related to an L4 radiculopathy/neuropathy. I will refer to Dr. Garcia for a left L4 block to see if this can give her some temporary relief. I am confident that further recovery of the nerve hook occur over time. I will follow up in 6 months. I spent 20 minutes in his consult for history, physical exam and discussing plan of care. Thank you for letting me take care of your patient. Jimmy Chapa MD, PhD Spine Fellowship Trained Neurosurgeon Director, [facility] [place] Orders: Referrals Pain Management Referral M54.17 - Radiculopathy, lumbosacral region Coding Level of Care Code Est Pt Level 3 (00432) Diagnoses Fusion of lumbar spine M43.26 Scoliosis due to degenerative disease of spine in adult patient M41.50 Lumbosacral radiculopathy at L4 M54.17
== END 2023-07-10 14:04 | disposition home or self-care (01) ==
PROVIDERS: PCP Family Medicine; Visit Provider Neurological Surgery
DX: M43.26 Fusion of spine, lumbar region (principal); M41.50 Other secondary scoliosis, site unspecified; M54.17 Radiculopathy, lumbosacral region
CPT/HCPCS: 99213

== ENCOUNTER → 2023-07-10 12:50 | Outpatient (BNVA) | payer MEDICARE, SELFPAY | PROVIDERS: PCP Family Medicine; Visit Provider Neurological Surgery ==